=== PATIENT | male | born 1955 | race African-American/Black ===

== ENCOUNTER 2022-08-05 05:13 | Emergency (ER) | payer MEDICAID, OTHER ==
[~2022-08-05] VITALS: Ht 175.3 cm; Wt 106.0 kg
[2022-08-05 05:13] VITALS: BP 164/94
[2022-08-05] MEDS ORDERED: NAPROXEN 500 MG TAB PO ONE (07:00)
[2022-08-05] MEDS ORDERED: COLCHICINE 0.6 MG CAP PO ONE (07:00)
[2022-08-05] MEDS ORDERED: COLC1TAB3 PO (07:01)
[2022-08-05] MEDS ORDERED: NAP500T PO (07:01)
[2022-08-05] MEDS ORDERED: PRED20TA2 PO (07:19)
[2022-08-05] MEDS ORDERED: methylPREDNISolone SOD SUCC 125 MG/2 ML VL IM ONE (07:30)
== END 2022-08-05 07:26 | disposition home or self-care (01) ==
LOC: ER 05:13
DX: M10.9 Gout, unspecified (principal); M79.642 Pain in left hand; Z88.0 Allergy status to penicillin
CPT/HCPCS: 99283; J2930